=== PATIENT | female | born 1965 | race Caucasian/White ===

== ENCOUNTER 2020-07-30 13:12 | Emergency (ER) | payer OTHER ==
[~2020-07-30] VITALS: Ht 160 cm; Wt 64.6 kg
--- NOTE | 2020-07-30 13:37 | ED General ---
General Chief Complaint: Fever-Adult/Adol Stated Complaint: MYALGIA,FEVER,HEADACHE Source of Information: Patient Exam Limitations: No Limitations History of Present Illness Date Seen by Provider: Jul 30, 2020 Time Seen by Provider: 13:30 Initial Comments This is a well-appearing 55-year-old female who presents to the ER with complain ts of fever and headache since . States she developed a headache and then started running temperatures of 101. Has been taking ibuprofen when necessary, stating Tylenol does not help her. Currently rates her headache, 7 out of 10, throbbing. Also states she has generalized body aches. Denies blurry vision, double vision, cough, sore throat, chest pain, shortness of breath, abdominal pain, nausea, vomiting, diarrhea, dysuria, or hematuria. No known COVID exposure or ill contacts. Allergies and Home Medications Allergies Uncoded Allergies: PENICILLIN (Allergy, Severe, Anaphylaxis, 07/30/20) Patient Home Medication List Home Medication List Reviewed: Yes Review of Systems Review of Systems Constitutional: see HPI EENTM: no symptoms reported Respiratory: no symptoms reported Cardiovascular: no symptoms reported Gastrointestinal: no symptoms reported Genitourinary: no symptoms reported Musculoskeletal: see HPI Skin: no symptoms reported Psychiatric/Neurological: No Symptoms Reported Hematologic/Lymphatic: No Symptoms Reported Immunological/Allergic: no symptoms reported Physical Exam Vital Signs Vital Signs - First Documented 07/30/20 13:20 Temp 38.3 Pulse 98 Resp 18 B/P (MAP) 116/63 (80) Pulse Ox 96 Capillary Refill : Height, Weight, BMI Height: '" Weight: lbs. oz. kg; BMI Method: General Appearance: No Apparent Distress, WD/WN Eyes: Bilateral Eye Normal Inspection, Bilateral Eye PERRL, Bilateral Eye EOMI HEENT: PERRL/EOMI, TMs Normal, Normal ENT Inspection, Pharynx Normal, Moist Mucous Membranes Neck: Full Range of Motion, Normal Inspection, Non Tender Respiratory: Lungs Clear, Normal Breath Sounds, No Accessory Muscle Use Cardiovascular: Regular Rate, Rhythm, No Murmur, Normal Peripheral Pulses Gastrointestinal: Non Tender, Soft Back: Normal Inspection, No CVA Tenderness Extremity: Normal Capillary Refill, Normal Inspection, Normal Range of Motion, No Pedal Edema Neurologic/Psychiatric: Alert, Oriented x3, No Motor/Sensory Deficits, Normal Mood/Affect Skin: Normal Color, Warm/Dry Focused Exam Lactate Level 07/30/20 14:00: Lactic Acid Level 0.74 Lactic Acid Level Laboratory Tests Test 07/30/20 14:00 Lactic Acid Level 0.74 MMOL/L (0.50-2.00) Progress/Results/Core Measures Suspected Sepsis SIRS Temperature: Pulse: Respiratory Rate: Laboratory Tests 07/30/20 13:47: White Blood Count 9.9 Blood Pressure / Mean: 07/30/20 14:00: Lactic Acid Level 0.74 Laboratory Tests 07/30/20 13:47: Creatinine 0.74, Platelet Count 229, Total Bilirubin 0.4 Results/Orders Lab Results Laboratory Tests Test 07/30/20 13:47 07/30/20 14:00 07/30/20 14:36 Range/Units White Blood Count 9.9 4.3-11.0 10^3/uL Red Blood Count 3.50 L 3.80-5.11 10^6/uL Hemoglobin 11.7 11.5-16.0 g/dL Hematocrit 34 L 35-52 % Mean Corpuscular Volume 97 80-99 fL Mean Corpuscular Hemoglobin 33 25-34 pg Mean Corpuscular Hemoglobin Concent 35 32-36 g/dL Red Cell Distribution Width 11.3 10.0-14.5 % Platelet Count 229 130-400 10^3/uL Mean Platelet Volume 9.8 9.0-12.2 fL Immature Granulocyte % (Auto) 0 % Neutrophils (%) (Auto) 90 H 42-75 % Lymphocytes (%) (Auto) 5 L 12-44 % Monocytes (%) (Auto) 4 0-12 % Eosinophils (%) (Auto) 0 0-10 % Basophils (%) (Auto) 0 0-10 % Neutrophils # (Auto) 9.0 H 1.8-7.8 10^3/uL Lymphocytes # (Auto) 0.5 L 1.0-4.0 10^3/uL Monocytes # (Auto) 0.4 0.0-1.0 10^3/uL Eosinophils # (Auto) 0.0 0.0-0.3 10^3/uL Basophils # (Auto) 0.0 0.0-0.1 10^3/uL Immature Granulocyte # (Auto) 0.0 0.0-0.1 10^3/uL Neutrophils % (Manual) 91 % Lymphocytes % (Manual) 0 % Monocytes % (Manual) 4 % Eosinophils % (Manual) 1 % Basophils % (Manual) 0 % Band Neutrophils 4 % Blood Morphology Comment NORMAL Sodium Level 133 L 135-145 MMOL/L Potassium Level 3.7 3.6-5.0 MMOL/L Chloride Level 103 98-107 MMOL/L Carbon Dioxide Level 19 L 21-32 MMOL/L Anion Gap 11 5-14 MMOL/L Blood Urea Nitrogen 7 7-18 MG/DL Creatinine 0.74 0.60-1.30 MG/DL Estimat Glomerular Filtration Rate > 60 BUN/Creatinine Ratio 9 Glucose Level 102 70-105 MG/DL Calcium Level 8.6 8.5-10.1 MG/DL Corrected Calcium 8.8 8.5-10.1 MG/DL Total Bilirubin 0.4 0.1-1.0 MG/DL Aspartate Amino Transf (AST/SGOT) 27 5-34 U/L Alanine Aminotransferase (ALT/SGPT) 35 0-55 U/L Alkaline Phosphatase 64 40-136 U/L Total Protein 6.8 6.4-8.2 GM/DL Albumin 3.8 3.2-4.5 GM/DL Coronavirus 2019 (CHAVEZ) Negative Negative Lactic Acid Level 0.74 0.50-2.00 MMOL/L Urine Color YELLOW Urine Clarity SL CLOUDY Urine pH 6.0 5-9 Urine Specific Ryder 1.025 H 1.016-1.022 Urine Protein 1+ H NEGATIVE Urine Glucose (UA) NEGATIVE NEGATIVE Urine Ketones 3+ H NEGATIVE Urine Nitrite NEGATIVE NEGATIVE Urine Bilirubin 1+ H NEGATIVE Urine Urobilinogen 0.2 < = 1.0 MG/DL Urine Leukocyte Esterase NEGATIVE NEGATIVE Urine RBC (Auto) 1+ H NEGATIVE Urine RBC 2-5 H /HPF Urine WBC NONE /HPF Urine Squamous Epithelial Cells 25-50 H /HPF Urine Crystals NONE /LPF Urine Bacteria FEW H /HPF Urine Casts NONE /LPF Urine Mucus LARGE H /LPF Urine Culture Indicated NO Micro Results Microbiology 07/30/20 Influenza Types A,B Antigen (MIQUEL) - Final, Complete My Orders Orders - LINDA MAGALLANES SOCIAL SERVICE AGENCY DIRECTOR Cbc With Automated Diff (07/30/20 13:16) Comprehensive Metabolic Panel (07/30/20 13:16) Ua Culture If Indicated (07/30/20 13:16) Covid 19 Inhouse Test (07/30/20 13:16) Influenza A And B Antigens (07/30/20 13:16) Lactic Acid Analyzer (07/30/20 13:16) Ns Iv 1000 Ml (Sodium Chloride 0.9%) (07/30/20 13:45) Acetaminophen Tablet (Tylenol Tablet) (07/30/20 13:45) Ketorolac Injection (Toradol Injection) (07/30/20 13:45) Ketorolac Injection (Toradol Injection) (07/30/20 13:47) Manual Differential (07/30/20 13:47) Medications Given in ED Current Medications Medications Dose Ordered Sig/Cristel Route Start Time Stop Time Status Last Admin Dose Admin Acetaminophen 1,000 mg ONCE ONCE PO 07/30/20 13:45 07/30/20 13:47 DC 07/30/20 13:56 1,000 MG Ketorolac Tromethamine 30 mg STK-MED ONCE .ROUTE 07/30/20 13:47 07/30/20 13:51 DC 07/30/20 13:56 15 MG Sodium Chloride 1,000 ml @ 100 mls/hr Q10H ONCE IV 07/30/20 13:45 07/30/20 15:14 DC 07/30/20 13:57 100 MLS/HR Vital Signs/I&O 07/30/20 07/30/20 13:20 15:00 Temp 38.3 Pulse 98 70 Resp 18 18 B/P (MAP) 116/63 (80) 104/64 Pulse Ox 96 98 Capillary Refill : Progress Note : Progress Note Pt. examined. No acute distress. Has no respiratory or GI/ complaints. Basic labs, lactic, COVID, Influenza, and UA ordered. Orders placed for Tylenol 1000mg PO for fever, 1 liter NS, and Toradol 15mg IVP for MARES. Labs reviewed and are unremarkable. Reported feeling much improved after fluids and medication. Unknown source of fever, but this very well could be COVID. Discussed continuing to isolate at home for 10 days and to follow up with her PCP or return to ER if she has any new or concerning symptoms. Discussed discharge POC and she is agreeable with plan. Departure Impression Primary Impression: Fever Additional Impression: Head ache Disposition: HOME, SELF-CARE Condition: Improved Departure-Patient Inst. Decision time for Depature: 15:01 Patient Instructions: Dehydration, Adult (DC), Fever of Unknown Origin (DC) Add. Discharge Instructions: Plan: 1. Discharge home. Drink plenty of fluids. You want your urine to be a pale yellow. 2. May take Tylenol or Ibuprofen as needed for pain/fever per package instructions. 3. Follow up with your primary care provider if your symptoms persist. 4. Return for any new or concerning symptoms. All discharge instructions reviewed with patient and/or family. Voiced understanding. LINDA MAGALLANES SOCIAL SERVICE AGENCY DIRECTOR Jul 30, 2020 13:37
[2020-07-30] MEDS ORDERED: KETOROLAC 15 MG/ML VIAL IVP ONE (13:45)
[2020-07-30] MEDS ORDERED: NS IV 1000 ML 1,000 ML IV ONE (13:45)
[2020-07-30] MEDS ORDERED: ACETAMINOPHEN 500 MG TAB (TYLENOL) PO ONE (13:45)
[2020-07-30] MEDS ORDERED: KETOROLAC 30 MG/ML VIAL ONE (13:47)
[2020-07-30 13:56] LABS: BASOPHILS % (AUTO) 0 % (0-10); EOSINOPHILS % (AUTO) 0 % (0-10); HEMATOCRIT 34 % (35-52); HEMOGLOBIN 11.7 g/dL (11.5-16.0); LYMPHOCYTES # (AUTO) 0.5 10^3/uL (1.0-4.0); LYMPHOCYTES % (AUTO) 5 % (12-44); MEAN CORPUSCULAR HEMOGLOBIN 33 pg (25-34); MEAN CORPUSCULAR HGB CONC 35 g/dL (32-36); MEAN CORPUSCULAR VOLUME 97 fL (80-99); MEAN PLATELET VOLUME 9.8 fL (9.0-12.2); MONOCYTES # (AUTO) 0.4 10^3/uL (0.0-1.0); MONOCYTES % (AUTO) 4 % (0-12); NEUTROPHILS % (AUTO) 90 % (42-75); PLATELET COUNT 229 10^3/uL (130-400); WHITE BLOOD COUNT 9.9 10^3/uL (4.3-11.0)
[2020-07-30 14:05] LABS: ALBUMIN 3.8 GM/DL (3.2-4.5); POTASSIUM 3.7 MMOL/L (3.6-5.0); SODIUM 133 MMOL/L (135-145)
[2020-07-30 14:06] LABS: CALCIUM 8.6 MG/DL (8.5-10.1)
[2020-07-30 14:07] LABS: GLUCOSE 102 MG/DL (70-105)
[2020-07-30 14:08] LABS: CHLORIDE 103 MMOL/L (98-107); TOTAL PROTEIN 6.8 GM/DL (6.4-8.2)
[2020-07-30 14:09] LABS: BILIRUBIN,TOTAL 0.4 MG/DL (0.1-1.0); CARBON DIOXIDE 19 MMOL/L (21-32)
[2020-07-30 14:11] LABS: ALKALINE PHOSPHATASE 64 U/L (40-136); CREATININE SERUM 0.74 MG/DL (0.60-1.30); GFR ESTIMATED > 60
[2020-07-30 14:12] LABS: BUN/CREATININE RATIO 9
[2020-07-30 14:14] LABS: ALANINE AMINOTRANSFERASE 35 U/L (0-55)
[2020-07-30 14:28] LABS: BAND NEUTROPHILS 4 %; BASOPHILS % (MANUAL) 0 %; EOSINOPHILS % (MANUAL) 1 %; LYMPHOCYTES % (MANUAL) 0 %; MONOCYTES % (MANUAL) 4 %; NEUTROPHILS % (MANUAL) 91 %; RBC MORPH NORMAL
[2020-07-30 14:41] LABS: CLARITY,URINE SL CLOUDY; COLOR,URINE YELLOW; GLUCOSE, URINE (UA) NEGATIVE (NEGATIVE); KETONES,URINE 3+ (NEGATIVE); LEUKOCYTE ESTERASE ,URINE NEGATIVE (NEGATIVE); NITRITE,URINE NEGATIVE (NEGATIVE); PROTEIN,URINE 1+ (NEGATIVE)
[2020-07-30 14:48] LABS: BILIRUBIN,URINE 1+ (NEGATIVE)
[2020-07-30 14:49] LABS: BACTERIA,URINE FEW /HPF; SQUAMOUS EPITHELIAL CELL,UR 25-50 /HPF
[2020-07-30 15:00] VITALS: BP 104/64
== END 2020-07-30 15:00 | disposition home or self-care (01) ==
LOC: ER 13:15
DX: R50.9 Fever, unspecified (principal); R51.9 Headache, unspecified; Z88.0 Allergy status to penicillin; Z20.828 Contact with and (suspected) exposure to other viral communicable diseases
CPT/HCPCS: 80053; 81000; 83605; 85007; 85027; 87804; 99282; U0002; 36415; 87635

== ENCOUNTER 2020-08-01 20:47 | Emergency (ER) | payer OTHER ==
[~2020-08-01] VITALS: Ht 160 cm; Wt 64.4 kg
[2020-08-01] MEDS ORDERED: LACTATED RINGERS 1,000 ML IV ONE (21:30)
[2020-08-01] MEDS ORDERED: guaiFENesin/CODEINE (ROBITUSSIN AC) 10ML UDC PO ONE (21:30)
--- NOTE | 2020-08-01 21:36 | ED Cough/URI ---
General Stated Complaint: COUGH,FEVER,HEADACHE Source: patient Exam Limitations: no limitations History of Present Illness Date Seen by Provider: Aug 01, 2020 Time Seen by Provider: 21:15 Initial Comments Patient presents with chief complaint of cough, headache, decreased urination and fevers T-max 103 F. Has been using alternating Tylenol and Motrin. S ymptoms started on , 5 days ago. She was tested at urgent care for flu and Covid which were negative and again twice more since then at the ER in urgent care for Covid all of which were negative. She is upset because she feels foggy and has not felt better yet. She denies having history of lung disease or other illness. She does not follow with a primary care doctor sharath cardoza but she does have one in [place]. She feels like she is having decreased fluid intake and having a difficult time urinating but not dysuria or discharge. Allergies and Home Medications Allergies Uncoded Allergies: PENICILLIN (Allergy, Severe, Anaphylaxis, 07/30/20) Home Medications Guaifenesin/Codeine Phosphate 120 Ml Liquid, 15 ML PO Q6H PRN for cough Prescribed by: MICHAEL SHANNON on 08/01/202209 Ondansetron 4 Mg Tab.rapdis, 4 MG PO Q6H PRN for NAUSEA/VOMITING Prescribed by: MICHAEL SHANNON on 08/01/202209 Patient Home Medication List Home Medication List Reviewed: Yes Review of Systems Review of Systems Constitutional: No chills, No diaphoresis EENTM: No ear discharge, No ear pain Respiratory: cough; No dyspnea on exertion, No phlegm, No short of breath, No wheezing Cardiovascular: No Hx of Intervention, No palpitations Gastrointestinal: No abdominal pain, No constipation, No diarrhea, No nausea, No vomiting Musculoskeletal: No back pain, No joint pain All Other Systems Reviewed Negative Unless Noted: Yes Past Elzflpr-Udxehg-Nytduy Hx Patient Social History Alcohol Use: Denies Use Alcohol Beverage of Choice: Beer Smoking Status: Never a Smoker Recent Hopitalizations: No Seasonal Allergies Seasonal Allergies: No Past Medical History Surgeries: Yes Section Respiratory: No Cardiac: No Neurological: No Genitourinary: No Gastrointestinal: No Musculoskeletal: No Endocrine: No HEENT: No Cancer: No Psychosocial: Yes Depression Integumentary: No Physical Exam Vital Signs - First Documented 08/01/20 21:34 Temp 38.4 Pulse 122 Resp 18 B/P (MAP) 137/91 (106) Pulse Ox 96 Capillary Refill : Height: '" Weight: lbs. oz. kg; 25.00 BMI Method: General Appearance: WD/WN, mild distress Eyes: Bilateral Eye Normal Inspection, Bilateral Eye PERRL, Bilateral Eye EOMI HEENT: PERRL/EOMI; No pharynx normal (Oral mucosa is dry) Neck: full range of motion, normal inspection Respiratory: lungs clear, normal breath sounds, no respiratory distress (96 to 99% on room air nonlabored breathing. Able to speak full fluent sentences without being short of breath.), no accessory muscle use Cardiovascular: normal peripheral pulses, regular rate, rhythm Neurologic/Psychiatric: alert, oriented x 3 Skin: normal color, warm/dry Progress/Results/Core Measures Suspected Sepsis SIRS Temperature: Pulse: Respiratory Rate: Laboratory Tests 08/01/20 21:30: White Blood Count 8.0 Blood Pressure / Mean: Laboratory Tests 08/01/20 21:30: Creatinine 0.70, Platelet Count 235, Total Bilirubin 0.4 Results/Orders Lab Results Laboratory Tests Test 08/01/20 21:30 Range/Units White Blood Count 8.0 4.3-11.0 10^3/uL Red Blood Count 3.37 L 3.80-5.11 10^6/uL Hemoglobin 11.2 L 11.5-16.0 g/dL Hematocrit 32 L 35-52 % Mean Corpuscular Volume 94 80-99 fL Mean Corpuscular Hemoglobin 33 25-34 pg Mean Corpuscular Hemoglobin Concent 35 32-36 g/dL Red Cell Distribution Width 11.5 10.0-14.5 % Platelet Count 235 130-400 10^3/uL Mean Platelet Volume 9.7 9.0-12.2 fL Immature Granulocyte % (Auto) 1 % Neutrophils (%) (Auto) 88 H 42-75 % Lymphocytes (%) (Auto) 6 L 12-44 % Monocytes (%) (Auto) 4 0-12 % Eosinophils (%) (Auto) 1 0-10 % Basophils (%) (Auto) 0 0-10 % Neutrophils # (Auto) 7.0 1.8-7.8 10^3/uL Lymphocytes # (Auto) 0.5 L 1.0-4.0 10^3/uL Monocytes # (Auto) 0.3 0.0-1.0 10^3/uL Eosinophils # (Auto) 0.1 0.0-0.3 10^3/uL Basophils # (Auto) 0.0 0.0-0.1 10^3/uL Immature Granulocyte # (Auto) 0.1 0.0-0.1 10^3/uL Sodium Level 135 135-145 MMOL/L Potassium Level 3.0 L 3.6-5.0 MMOL/L Chloride Level 104 98-107 MMOL/L Carbon Dioxide Level 21 21-32 MMOL/L Anion Gap 10 5-14 MMOL/L Blood Urea Nitrogen 5 L 7-18 MG/DL Creatinine 0.70 0.60-1.30 MG/DL Estimat Glomerular Filtration Rate > 60 BUN/Creatinine Ratio 7 Glucose Level 127 H 70-105 MG/DL Calcium Level 8.6 8.5-10.1 MG/DL Corrected Calcium 9.0 8.5-10.1 MG/DL Total Bilirubin 0.4 0.1-1.0 MG/DL Aspartate Amino Transf (AST/SGOT) 87 H 5-34 U/L Alanine Aminotransferase (ALT/SGPT) 102 H 0-55 U/L Alkaline Phosphatase 154 H 40-136 U/L Total Protein 6.4 6.4-8.2 GM/DL Albumin 3.5 3.2-4.5 GM/DL My Orders Orders - MICHAEL SHANNON Ed Iv/Invasive Line Start (08/01/20 21:30) Lactated Ringers (Lr 1000 Ml Iv Solution (08/01/20 21:30) Cbc With Automated Diff (08/01/20 21:30) Comprehensive Metabolic Panel (08/01/20 21:30) Hs C Reactive Protein (08/01/20 21:30) Chest Pa/Lat (2 View) (08/01/20 21:30) Mycoplasma Antibodies (08/01/20 21:30) Guaifenesin/Codeine Syrup (Robitussin Ac (08/01/20 21:30) Ketorolac Injection (Toradol Injection) (08/01/20 21:45) Magnesium (08/01/20 21:30) Coronavirus Sars-Cov-2 So 2018 (08/01/20 22:04) Medications Given in ED Current Medications Medications Dose Ordered Sig/Cristel Route Start Time Stop Time Status Last Admin Dose Admin Guaifenesin/ Codeine Phosphate 10 ml ONCE ONCE PO 08/01/20 21:30 08/01/20 21:33 DC 08/01/20 21:50 10 ML Ketorolac Tromethamine 30 mg ONCE ONCE IVP 08/01/20 21:45 08/01/20 21:46 DC 08/01/20 21:50 30 MG Lactated Ringer's 1,000 ml @ 0 mls/hr Q0M ONCE IV 08/01/20 21:30 08/01/20 21:33 DC 08/01/20 21:49 0 MLS/HR Vital Signs/I&O 08/01/20 21:34 Temp 38.4 Pulse 122 Resp 18 B/P (MAP) 137/91 (106) Pulse Ox 96 Capillary Refill : Progress Note : Time: 21:35 Progress Note Bronchitis versus walking pneumonia versus less likely lobar pneumonia. We will get a chest x-ray and repeat some basic labs including a CRP. There is no suspicion for Covid or influenza at this time as she has been tested 3 different times and they have all been negative. We will give her a liter of fluids, Toradol and guaifenesin with codeine for cough. Diagnostic Imaging Diagonstic Imaging: Xray Plain Films/CT/US/NM/MRI: chest Comments NAME: AV[facility] SCHMID [facility] REC#: [id number] PT STATUS: REG ER : 1965 PHYSICIAN: MICHAEL SHANNON MD ADMIT DATE: 08/01/20/ER Draft Date of Exam:08/01/20 CHEST PA/LAT (2 VIEW) INDICATION: Cough, fever, bodyaches FINDINGS: Frontal and lateral views of the chest demonstrate a right lower lobe and left upper lobe infiltrate. Heart size and vascularity are normal. There are no pleural effusions. IMPRESSION: Bilateral pulmonary infiltrates are present. Recommend correlation with Covid testing. Dictated on workstation # [id number] Dict: 08/01/202146 Trans: 08/01/202150 [facility] [id number] Interpreted by: GERALD AYOUB MD Electronically signed by: Reviewed: Reviewed by Me Departure Impression Primary Impression: Person under investigation for COVID-19 Additional Impression: Viral pneumonia, unspecified Disposition: 01 HOME, SELF-CARE Condition: Stable Departure-Patient Inst. Decision time for Depature: 22:15 Patient Instructions: Dehydration, Adult (DC), Coronavirus Disease 2019 (COVID- 19) (DC) Add. Discharge Instructions: You have an atypical viral pneumonia. We sent a swab out for Covid again which should have results in a few days. We also sent some blood tests out looking for mycoplasma and other atypical causes of pneumonia. Expect to hear back on those results in the next 2 to 3 days stops. it desktop support technician the pulse oximeter and return to the ER if your oxygen sats are consistently below 90% and you are short of breath. If you are having dehydration you can go outpatient and get a liter of fluids by calling ahead. If you are struggling to breathe or having other worsening symptoms you may return to the ER for further evaluation. Robitussin with codeine 15 mL every 6 hours as necessary for cough. This will cause constipation and drowsiness. Colace or stool softeners are recommended if you are having constipation. If you are having diarrhea then used 2 tablets of Imodium to start and then 1 tablet every 4 hours afterwards that you are still having loose, watery diarrhea. Humidifiers, vapor rubs such as Vicks or Mentholatum and Tylenol and ibuprofen for fever/body aches. Expect symptoms to last 1 to 2 weeks. Is not unusual for people to have slow recovery lasting a month or so afterwards from viral pneumonias. Ondansetron 1 tablet every 6 hours as necessary for nausea and/or vomiting. Scripts Guaifenesin/Codeine Phosphate (Codeine-Guaifen 10-100 mg/5 ml) 120 Ml Liquid 15 ML PO Q6H PRN for cough, #240 ML 0 Refills Prov: MICHAEL SHANNON 08/01/20 Ondansetron (Ondansetron Odt) 4 Mg Tab.rapdis 4 MG PO Q6H PRN for NAUSEA/VOMITING, #8 TAB 0 Refills Prov: MICHAEL SHANNON 08/01/20 MICHAEL SHANNON Aug 01, 2020 21:36
[2020-08-01 21:39] LABS: BASOPHILS % (AUTO) 0 % (0-10); EOSINOPHILS # (AUTO) 0.1 10^3/uL (0.0-0.3); EOSINOPHILS % (AUTO) 1 % (0-10); HEMATOCRIT 32 % (35-52); HEMOGLOBIN 11.2 g/dL (11.5-16.0); LYMPHOCYTES # (AUTO) 0.5 10^3/uL (1.0-4.0); LYMPHOCYTES % (AUTO) 6 % (12-44); MEAN CORPUSCULAR HEMOGLOBIN 33 pg (25-34); MEAN CORPUSCULAR HGB CONC 35 g/dL (32-36); MEAN CORPUSCULAR VOLUME 94 fL (80-99); MEAN PLATELET VOLUME 9.7 fL (9.0-12.2); MONOCYTES # (AUTO) 0.3 10^3/uL (0.0-1.0); MONOCYTES % (AUTO) 4 % (0-12); NEUTROPHILS % (AUTO) 88 % (42-75); PLATELET COUNT 235 10^3/uL (130-400)
[2020-08-01] MEDS ORDERED: KETOROLAC 30 MG/ML VIAL IVP ONE (21:45)
[2020-08-01 21:49] LABS: ALBUMIN 3.5 GM/DL (3.2-4.5); CHLORIDE 104 MMOL/L (98-107); SODIUM 135 MMOL/L (135-145)
[2020-08-01 21:50] LABS: CALCIUM 8.6 MG/DL (8.5-10.1)
[2020-08-01 21:52] LABS: GLUCOSE 127 MG/DL (70-105); TOTAL PROTEIN 6.4 GM/DL (6.4-8.2)
--- NOTE | 2020-08-01 21:52 | Diagnostic Imaging Report ---
INDICATION: Cough, fever, bodyaches FINDINGS: Frontal and lateral views of the chest demonstrate a right lower lobe and left upper lobe infiltrate. Heart size and vascularity are normal. There are no pleural effusions. IMPRESSION: Bilateral pulmonary infiltrates are present. Recommend correlation with Covid testing. Dictated by: Dictated on workstation # [id number]
[2020-08-01 21:53] LABS: BILIRUBIN,TOTAL 0.4 MG/DL (0.1-1.0); CARBON DIOXIDE 21 MMOL/L (21-32)
[2020-08-01 21:55] LABS: ALKALINE PHOSPHATASE 154 U/L (40-136); GFR ESTIMATED > 60
[2020-08-01 21:56] LABS: BUN/CREATININE RATIO 7
[2020-08-01 21:58] LABS: ALANINE AMINOTRANSFERASE 102 U/L (0-55)
[2020-08-01] MEDS ORDERED: ONDA4TAB11 PO (22:10)
[2020-08-01] MEDS ORDERED: GUAI120L56 PO (22:10)
[2020-08-01 22:12] LABS: MAGNESIUM 1.8 MG/DL (1.6-2.4)
[2020-08-01 22:55] VITALS: BP 117/89
[2020-08-02] MEDS ORDERED: AZIT250T PO (14:22)
== END 2020-08-01 22:55 | disposition home or self-care (01) ==
LOC: EDUNIT# 20:47 → ER 20:49
DX: J12.9 Viral pneumonia, unspecified (principal); Z20.828 Contact with and (suspected) exposure to other viral communicable diseases; Z88.0 Allergy status to penicillin
CPT/HCPCS: 71046; 80053; 83735; 85025; 86141; 86738; 99284; U0002; 36415; 87635

== ENCOUNTER 2020-08-02 13:05 | Emergency (ER) | payer OTHER ==
[~2020-08-02] VITALS: Ht 167 cm; Wt 64.4 kg
[~2020-08-02 13:05] MED LIST: GUAI120L56 PO; ONDA4TAB11 PO
[2020-08-02 13:20] VITALS: BP 118/69
--- NOTE | 2020-08-02 13:42 | ED Cough/URI ---
General Chief Complaint: Cough/Cold/Flu Symptoms Stated Complaint: MARES,FEVER,N/V Nursing Triage Note: states since last cough, fever, bodyaches previously tested for COVID, waiting on results Sepsis Screen: No Definite Risk Source: patient Exam Limitations: no limitations History of Present Illness Date Seen by Provider: Aug 02, 2020 Time Seen by Provider: 13:30 Initial Comments Patient is a 55-year-old female who presents to the emergency department today with a chief complaint of fever, cough, generalized malaise and fatigue. Maddie vazquez has had symptoms ongoing for 1 week. Patient has had 2 prior emergency rooms visits for her symptoms. Patient was last seen last evening and notably on her labs she had mild elevation in her liver transaminases, and elevated CRP, no normal white blood cell count. Patient's chest x-ray demonstrated bilateral bibasilar infiltrates consistent with a bilateral pneumonia. Patient states that she can tell when her medications are wearing off she sets a timer to take her ibuprofen and Tylenol every 4 hours. She states at this point in time she feels a little bit better but she knows when her medications wear off she will be feeling poorly again. She denies any significant worsening of her symptoms since her visit last night. There was a miscommunication with her primary care physician and he reportedly told her that I advised her to come back to the emergency department. Patient is not having any nausea vomiting, diarrhea, urinary symptoms. She has had headache with her symptoms. At this time the headache is manageable. There is some concern for her possibly needing a CT of her head because she does endorse feeling "foggy headed". She states that she has forgotten account numbers and such. She has no acute neurologic deficit however. All other review of systems reviewed and negative except as stated above. Timing/Duration: week Severity/Quality: moderate, productive cough Associated Symptoms: cough, fever/chills, headache, muscle aches Allergies and Home Medications Allergies Uncoded Allergies: PENICILLIN (Allergy, Severe, Anaphylaxis, 07/30/20) Home Medications Guaifenesin/Codeine Phosphate 120 Ml Liquid, 15 ML PO Q6H PRN for cough Prescribed by: MICHAEL SHANNON on 08/01/20 2210 Ondansetron 4 Mg Tab.rapdis, 4 MG PO Q6H PRN for NAUSEA/VOMITING Prescribed by: MICHAEL SHANNON on 08/01/20 2210 Patient Home Medication List Home Medication List Reviewed: Yes Review of Systems Review of Systems Constitutional: see HPI, chills, fever, malaise EENTM: no symptoms reported Respiratory: cough Cardiovascular: no symptoms reported Gastrointestinal: no symptoms reported Genitourinary: no symptoms reported Musculoskeletal: no symptoms reported Skin: no symptoms reported Psychiatric/Neurological: Headache, Other ("Foggy headed") All Other Systems Reviewed Negative Unless Noted: Yes Past Ltuiz[place]-Ldhkdv Hx Patient Social History Alcohol Beverage of Choice: Beer Recent Infectious Disease Expo: No Recent Hopitalizations: No Seasonal Allergies Seasonal Allergies: No Past Medical History Surgeries: Yes Section Respiratory: No Cardiac: No Neurological: No Genitourinary: No Gastrointestinal: No Musculoskeletal: No Endocrine: No HEENT: No Cancer: No Psychosocial: Yes Depression Integumentary: No Physical Exam Vital Signs - First Documented 08/02/20 13:20 Temp 38.0 Pulse 106 Resp 18 B/P (MAP) 118/69 (85) Pulse Ox 98 O2 Delivery Room Air Capillary Refill : Less Than 3 Seconds Height: '" Weight: lbs. oz. kg; 23.00 BMI Method: General Appearance: WD/WN, no apparent distress Eyes: Bilateral Eye Normal Inspection, Bilateral Eye PERRL, Bilateral Eye EOMI Neck: non-tender, full range of motion, supple, normal inspection, other (No meningismus noted) Respiratory: chest non-tender, lungs clear, normal breath sounds, no respiratory distress Cardiovascular: regular rate, rhythm, no murmur Gastrointestinal: normal bowel sounds, non tender, soft Progress/Results/Core Measures Suspected Sepsis Recent Fever Within 48 Hours: No Infection Criteria Present: None New/Unexplained Altered Menta: No Sepsis Screen: No Definite Risk SIRS Temperature: Pulse: 106 Respiratory Rate: 18 Blood Pressure 118 /69 Mean: 85 Results/Orders Vital Signs/I&O 08/02/20 13:20 Temp 38.0 Pulse 106 Resp 18 B/P (MAP) 118/69 (85) Pulse Ox 98 O2 Delivery Room Air Capillary Refill : Less Than 3 Seconds Blood Pressure Mean: 85 Departure Impression Primary Impression: Pneumonia Qualified Codes: J18.9 - Pneumonia, unspecified organism Disposition: 01 HOME, SELF-CARE Condition: Stable Departure-Patient Inst. Decision time for Depature: 14:17 Referrals: NO,LOCAL PHYSICIAN (PCP/Family) Primary Care Physician Patient Instructions: Pneumonia, Adult (DC) Add. Discharge Instructions: Take the antibiotics I have prescribed you until they are gone. Continue to use your cough medications as needed. Drink plenty of fluids to stay well-hydrated. Follow-up with your primary care physician. Scripts Azithromycin (Zithromax) 250 Mg Tablet 250 MG PO DAILY for 5 Days, #6 TAB Prov: SAI REY MD 08/02/20 SAI REY MD Aug 02, 2020 13:42
[2020-08-02] MEDS ORDERED: AZIT250T PO (14:22)
== END 2020-08-02 14:40 | disposition home or self-care (01) ==
LOC: EDUNIT# 13:05 → ER 13:07
DX: J18.9 Pneumonia, unspecified organism (principal); Z88.0 Allergy status to penicillin
CPT/HCPCS: 99282